=== PATIENT | female | born 1980 | race Caucasian/White ===

== ENCOUNTER 2016-10-11 20:01 | Emergency (ER) | payer OTHER ==
[2016-10-11 20:27] VITALS: BP 117/74
--- NOTE | 2016-10-11 21:06 | UC ---
Respiratory Complaint HPI - HPI Summary HPI Summary: 1 WEEK OF COUGH, CONGESTION AND CHEST TIGHTNESS. CAN NOT BREATHE THROUGH HER NOSE AT NIGHT. NO FEVER, ST OR EAR PAIN. 25 WEEKS . FOLLOWS WITH MIDWIVES AT [employer] [facility]. NO BLEEDING OR LOSS OF FLUID. BABY MOVING WELL. - History of Current Complaint Chief Complaint: UCRespiratory Stated Complaint: COUGH,TIGHT CHEST,PREG Time Seen by Provider: 10/11/16 20:36 Hx Obtained From: Patient Hx Last Menstrual Period: 1.5 WEEKS AGO Onset/Duration: Gradual Onset, Lasting Days, Still Present Timing: Constant Severity Initially: Moderate Severity Currently: Moderate Pain Intensity: 5 Pain Scale Used: 0-10 Numeric Character: Cough: Nonproductive Aggravating Factors: Nothing Alleviating Factors: Nothing Associated Signs And Symptoms: Positive: URI, Nasal Congestion. Negative: Fever , Chills, Pleuritic Chest Pain, Wheezing, Hemoptysis, Dizziness, Calf Pain, Calf Swelling, Edema, Hoarseness, Sinus Discomfort - Allergies/Home Medications Allergies/Adverse Reactions: Allergies Allergy/AdvReac Type Severity Reaction Status Date / Time No Known Allergies Allergy Verified 10/11/16 20:12 Home Medications: Home Medications Vitamin TAB* 1 tab QPM 10/11/16 [History Confirmed 10/11/16] PMH/Surg Hx/FS Hx/Imm Hx Endocrine History Of: Denies: Diabetes, Thyroid Disease, Hyperthyroidism, Hypothyroidism, Dyslipidemia Cardiovascular History Of: Denies: Cardiac Disorders, Hypertension, Pacemaker/ICD, Myocardial Infarction , Congestive Heart Failure, Atrial Fibrillation, Deep Vein Thrombosis, Bleeding Disorders Respiratory History Of: Reports: Asthma Denies: COPD GI/ History Of: Reports: Gastroesophageal Reflux - She takes Nexium every day. Denies: Ulcer, Gastrointestinal Bleed, Gall Bladder Disease, Kidney Stones, Diverticulitis, Renal Disease, Urosepsis Neurological History Of: Denies: TIA, CVA, Dementia, Seizures, Migraine Psychological History Of: Denies: Anxiety, Depression, Bipolar Disorder, Schizophrenia, Post Traumatic Stress Disorder Cancer History Of: Denies: Lung Cancer, Colorectal Cancer, Breast Cancer, Prostate Cancer, Cervical Cancer Other History Of: Negative For: HIV, Hepatitis B, Hepatitis C - Surgical History Surgical History: Yes Surgery Procedure, Year, and Place: Left foot surgery; - Family History Known Family History: Positive: Seizure Disorder - Brother had seizure as a child--but none since. Negative: Hypertension, Blood Disorder - Social History Alcohol Use: None Substance Use Type: None Smoking Status (MU): Never Smoked Tobacco - Immunization History Most Recent Influenza Vaccination: 2016 Most Recent Tetanus Shot: UTD Most Recent Pneumonia Vaccination: none Review of Systems Constitutional: Fatigue ENT: Nasal Discharge Respiratory: Cough Cardiovascular: Negative Gastrointestinal: Negative All Other Systems Reviewed And Are Negative: Yes Physical Exam Triage Information Reviewed: Yes Appearance: Well-Appearing, No Pain Distress, Well-Nourished Vital Signs: Initial Vital Signs Temp 97.4 F 10/11/16 20:14 Pulse 100 10/11/16 20:14 Resp 18 10/11/16 20:14 BP 117/74 10/11/16 20:14 Pulse Ox 99 10/11/16 20:14 Vital Signs Reviewed: Yes Eyes: Positive: Conjunctiva Clear ENT: Positive: Hearing grossly normal, Pharynx normal, TMs normal, Other: - FLUID BEHIND RIGHT TM Neck: Positive: Supple, Nontender, No Lymphadenopathy Respiratory Exam: Normal Cardiovascular Exam: Normal Abdomen Description: Positive: Soft, Other: - GRAVID. HEART TONES 140S Musculoskeletal: Positive: No Edema Neurological: Positive: Alert Psychological: Positive: Normal Response To Family, Age Appropriate Behavior Skin: Negative: rashes UC Diagnostic Evaluation - Laboratory O2 Sat by Pulse Oximetry: 99 Respiratory Course/Dx - Differential Dx/Diagnosis Provider Diagnoses: ACUTE BRONCHITIS/URI Discharge - Discharge Plan Condition: Stable Disposition: HOME Patient Education Materials: Upper Respiratory Infection (ED), Acute Bronchitis (ED) Referrals: Carmel Diamond MD [Primary Care Provider] - If Needed Additional Instructions: THERE IS NO SIGN OF BACTERIAL INFECTION ON EXAM TODAY. NO INDICATION FOR ABX. OKAY TO USE TYLENOL IF NEEDED FOR DISCOMFORT. NO IBUPROFEN OR NAPROXEN (NOT SAFE IN ). YOUR SYMPTOMS SHOULD RESOLVE ON THEIR OWN WITH TIME BUT IT WILL TAKE LONGER THAN USUAL DUE TO . CAN ALSO CAUSE CONGESTION AND FEELINGS OF SHORTNESS OF BREATH DUE TO HORMONAL CHANGES AND PHYSICAL PRESSURE ON LUNGS FROM GROWING BELLY. TRY OTC AFRIN FOR NASAL CONGESTION. OKAY TO USE 2 SPRAYS IN EACH NOSTRIL AT NIGHT BEFORE BED. DO NOT USE FOR MORE THAN 3-4 CONSECUTIVE DAYS TO PREVENT DEVELOPING REBOUND CONGESTION. SEEK FOLLOW-UP IF YOU DEVELOP FEVER OR YOUR SYMPTOMS DO NOT IMPROVE EXPECTED.
== END 2016-10-11 21:25 | disposition home or self-care (01) ==
LOC: UCEAST 20:01
DX: O26.892 Other specified pregnancy related conditions, second trimester (principal); Z3A.25 25 weeks gestation of pregnancy; J20.9 Acute bronchitis, unspecified; J06.9 Acute upper respiratory infection, unspecified; R07.89 Other chest pain
CPT/HCPCS: 93005; 99211; G0463

== ENCOUNTER 2016-10-29 12:04 | Emergency (ER) | payer OTHER ==
[2016-10-29] MEDS ORDERED: NS 0.9% 1000 ML* 1,000 ML IV ONE (13:39)
[2016-10-29 14:17] LABS: Hematocrit 33 % (35-47); Hemoglobin 10.6 g/dl (12.0-16.0); Mean Corpuscular HGB Conc 32 g/dl (31-36); Mean Corpuscular Hemoglobin 26 pg (27-31); Mean Corpuscular Volume 80 fL (80-97); Mean Platelet Volume 8 um3 (7.4-10.4); Red Blood Count 4.09 10^6/ul (4.0-5.4); Red Cell Distribution Width 15 % (10.5-15); White Blood Count 15.8 10^3/ul (3.5-10.8)
[2016-10-29 14:32] LABS: Albumin 3.3 g/dL (3.2-5.2); BUN/Creatinine Ratio 16.3 (8-20); Calcium 8.6 mg/dL (8.6-10.3); EGFR African American 183.8 (>60); EGFR Non-African American 142.9 (>60); Globulin 3.2 g/dL (2-4); Potassium 3.7 mmol/L (3.5-5.0); Total Bilirubin 0.2 mg/dL (0.2-1.0); Total Protein 6.5 g/dL (6.4-8.9)
[2016-10-29 14:38] LABS: Urine Bacteria Absent (Absent); Urine Bilirubin Negative (Negative); Urine Glucose 1+(50 mg/dL) (Negative); Urine Nitrite Negative (Negative)
--- NOTE | 2016-10-29 16:03 | RAD ---
INDICATION: Pain and swelling. COMPARISON: None TECHNIQUE: Duplex interrogation of the upperextremity was performed. FINDINGS: Deep veins: The visualized internal jugular, visualized subclavian, axillary, brachial, radial, and ulnar veins are patent. There is normal compressibility, augmentation, and phasic flow. Superficial veins: The cephalic and basilic veins are patent. There are no findings of superficial thrombophlebitis. Soft tissues:There are no soft tissue abnormalities. IMPRESSION: Normal examination. No evidence of deep venous thrombosis
--- NOTE | 2016-10-29 16:37 | ED ---
Merle Werner Erika, scribed for Lynnette Blue MD on 10/29/16 at 1412 . Complex/Multi-Sys Presentation - HPI Summary HPI Summary: Patient is a 36-year-old female presenting to the ED with a CC of paresthesia in the bilateral hands. Patient is currently 7.5 months . Patient reports that she has noticed the constant paresthesia, described as "pins and needles," for the past 3 weeks, and that it has been gradually worsening. The sensation is present on the whole left hand, and the palmar surface of the right hand. The hands are sometimes pruritic, and the left hand intermittently becomes numb. She also notes a shooting pain from her left elbow to left hand. She reports that last night, she woke up due to pain in the left hand, and states it was purple and swollen. She denies lower extremity pain, and denies Hx DVT or PE. Patient also states that she has been waking up during the night feeling SOB and "gasping for air." She notes SOB is sometimes present while she is sitting up. She denies any chest pressure, pain with deep breathing, or wheezing during the day. She does report hot flashes during the day, which make her anxious. Symptoms are not improved by her inhaler, which is effective when she has asthma attacks. Patient states that last week, she had a sharp pain in her lower back, which has resolved. For the past 3 days, she has had intermittent headaches. Yesterday, patient had a fever. Patient also notes she has been nauseated recently. Patient denies similar symptoms with prior pregnancies. . Patient reports Hx placental abruption in her last . Patient notes she has felt the baby move less than normal today. Hx asthma. Denies Hx DM. FHx asthma and DM. Patient is followed by Dr. Diamond. Pt works at a Day[employer] and lives with her family. She denies smoking, drinking, or illicit drug use. - History Of Current Complaint Chief Complaint: EDGeneral Time Seen by Provider: 10/29/16 13:17 Hx Obtained From: Family/Sales Compensation Analyst Onset/Duration: Gradual Onset, Lasting Weeks - 3 weeks, Still Present Timing: Constant Severity Currently: Moderate Severity Initially: Mild Associated Signs And Symptoms: Positive: Headache, SOB, Edema - L hand, Nausea, Fever, Other - Paresthesias, numbness. Negative: Wheezing, Chest Pain, Abdominal Pain - Allergies/Home Medications Allergies/Adverse Reactions: Allergies Allergy/AdvReac Type Severity Reaction Status Date / Time No Known Allergies Allergy Verified 10/11/16 20:12 PMH/Surg Hx/FS Hx/Imm Hx Endocrine/Hematology History: Denies: Hx Diabetes, Hx Thyroid Disease Cardiovascular History: Denies: Hx Congestive Heart Failure, Hx Deep Vein Thrombosis, Hx Hypertension , Hx Myocardial Infarction, Hx Pacemaker/ICD Respiratory History: Reports: Hx Asthma Denies: Hx Chronic Obstructive Pulmonary Disease (COPD), Hx Lung Cancer GI History: Reports: Hx Gastroesophageal Reflux Disease Denies: Hx Gall Bladder Disease, Hx Gastrointestinal Bleed, Hx Ulcer, Hx Urosepsis History: Denies: Hx Kidney Stones, Hx Renal Disease Neurological History: Denies: Hx Dementia, Hx Migraine, Hx Seizures, Hx Transient Ischemic Attacks (TIA) Psychiatric History: Denies: Hx Anxiety, Hx Depression, Hx Schizophrenia, Hx Bipolar Disorder - Surgical History Surgery Procedure, Year, and Place: Left foot surgery; - Immunization History Date of Tetanus Vaccine: unk Date of Influenza Vaccine: unk Infectious Disease History: No Infectious Disease History: Denies: Hx Clostridium Difficile, Hx Hepatitis, Hx Human Immunodeficiency Virus (HIV), Hx of Known/Suspected MRSA, Hx Shingles, Hx Tuberculosis, Hx Known/ Suspected VRE, Hx Known/Suspected VRSA, History Other Infectious Disease, Traveled Outside the [place] in Last 30 Days - Family History Known Family History: Positive: Diabetes, Respiratory Disease - Asthma Negative: Hypertension, Blood Disorder - Social History Occupation: Employed Full-time Lives: With Family Alcohol Use: None Hx Substance Use: No Substance Use Type: Reports: None Hx Tobacco Use: No Smoking Status (MU): Never Smoked Tobacco Review of Systems Positive: Fever, Other - hot flashes Negative: Chest Pain Positive: Shortness Of Breath Positive: Nausea Musculoskeletal: Other - Pain in L arm Skin: Other - hands somewhat pruritic, L hand purple and swollen Positive: Headache, Paresthesia - bilat hands, Numbness - L hand Positive: Anxious All Other Systems Reviewed And Are Negative: Yes Physical Exam Triage Information Reviewed: Yes Vital Signs On Initial Exam: Initial Vitals Temp Pulse Resp BP Pulse Ox 97.9 F 107 16 128/80 100 10/29/16 12:05 10/29/16 12:10/29/16 12:05 10/29/16 12:05 10/29/16 12:05 Vital Signs Reviewed: Yes Appearance: Positive: Well-Appearing, Well-Nourished, Pain Distress - Mildly uncomfortable appearing Skin: Positive: Warm, Skin Color Reflects Adequate Perfusion, Dry Eyes: Positive: EOMI, ZAYNAB ENT: Positive: Pharynx normal, TMs normal Neck: Positive: Supple, Nontender, Other: - No meningeal signs Respiratory/Lung Sounds: Positive: Clear to Auscultation, Breath Sounds Present. Negative: Rales, Rhonchi, Wheezes Cardiovascular: Positive: Tachycardia - at 107 bpm, Other - No gallops. Negative: Murmur, Rub Abdomen Description: Positive: Nontender, Soft, Other: - . No rebound. Negative: Guarding Bowel Sounds: Positive: Present Musculoskeletal: Positive: Strength/ROM Intact, Other - Slight swelling to the bilateral hands, left greater than right Neurological: Positive: Sensory/Motor Intact, Alert, Oriented to Person Place, Time, Other - CN II-XII intact. Normal DTRs Psychiatric: Positive: Affect/Mood Appropriate Procedures - Procedure Summary Procedure Summary: Splints applied. Diagnostics - Vital Signs Vital Signs Temp Pulse Resp BP Pulse Ox 10/29/16 12:12 97.8 F 105 20 131/82 99 10/29/16 12:05 97.9 F 107 16 128/80 100 - Laboratory Lab Results: Lab Results 10/29/16 10/29/16 10/29/16 Range/Units 13:59 13:59 13:59 WBC 15.8 H (3.5-10.8) 10^3/ul RBC 4.09 (4.0-5.4) 10^6/ul Hgb 10.6 L (12.0-16.0) g/dl Hct 33 L (35-47) % MCV 80 (80-97) fL MCH 26 L (27-31) pg MCHC 32 (31-36) g/dl RDW 15 (10.5-15) % Plt Count 253 (150-450) 10^3/ul MPV 8 (7.4-10.4) um3 Neut % (Auto) 78.2 (38-83) % Lymph % (Auto) 11.5 L (25-47) % [place] % (Auto) 7.9 (1-9) % Eos % (Auto) 2.1 (0-6) % Baso % (Auto) 0.3 (0-2) % Absolute Neuts (auto) 12.4 H (1.5-7.7) 10^3/ul Absolute Lymphs (auto) 1.8 (1.0-4.8) 10^3/ul Absolute Monos (auto) 1.2 H (0-0.8) 10^3/ul Absolute Eos (auto) 0.3 (0-0.6) 10^3/ul Absolute Basos (auto) 0 (0-0.2) 10^3/ul Absolute Nucleated RBC 0.01 10^3/ul Nucleated RBC % 0.1 Sodium 135 (133-145) mmol/L Potassium 3.7 (3.5-5.0) mmol/L Chloride 105 (101-111) mmol/L Carbon Dioxide 23 (22-32) mmol/L Anion Gap 7 (2-11) mmol/L BUN 8 (6-24) mg/dL Creatinine 0.49 L (0.51-0.95) mg/dL Est GFR ( Amer) 183.8 (>60) Est GFR (Non-Af Amer) 142.9 (>60) BUN/Creatinine Ratio 16.3 (8-20) Glucose 116 H (70-100) mg/dL Lactic Acid (0.5-2.0) mmol/L Calcium 8.6 (8.6-10.3) mg/dL Total Bilirubin 0.20 (0.2-1.0) mg/dL AST 14 (13-39) U/L ALT 8 (7-52) U/L Alkaline Phosphatase 73 (34-104) U/L Total Protein 6.5 (6.4-8.9) g/dL Albumin 3.3 (3.2-5.2) g/dL Globulin 3.2 (2-4) g/dL Albumin/Globulin Ratio 1.0 (1-3) Urine Color Yellow Urine Appearance Cloudy Urine pH 5.0 (5-9) Ur Specific [place] 1.019 (1.010-1.030) Urine Protein Negative (Negative) Urine Ketones Negative (Negative) Urine Blood Negative (Negative) Urine Nitrate Negative (Negative) Urine Bilirubin Negative (Negative) Urine Urobilinogen Negative (Negative) Ur Leukocyte Esterase 3+ H (Negative) Urine WBC (Auto) Trace(0-5/hpf) (Absent) Urine RBC (Auto) Absent (Absent) Ur Squamous Epith Cells Present H (Absent) Urine Bacteria Absent (Absent) Urine Glucose 1+(50 mg/dl) H (Negative) Urine Ascorbic Acid * H (Negative) 10/29/16 Range/Units 13:59 WBC (3.5-10.8) 10^3/ul RBC (4.0-5.4) 10^6/ul Hgb (12.0-16.0) g/dl Hct (35-47) % MCV (80-97) fL MCH (27-31) pg MCHC (31-36) g/dl RDW (10.5-15) % Plt Count (150-450) 10^3/ul MPV (7.4-10.4) um3 Neut % (Auto) (38-83) % Lymph % (Auto) (25-47) % [place] % (Auto) (1-9) % Eos % (Auto) (0-6) % Baso % (Auto) (0-2) % Absolute Neuts (auto) (1.5-7.7) 10^3/ul Absolute Lymphs (auto) (1.0-4.8) 10^3/ul Absolute Monos (auto) (0-0.8) 10^3/ul Absolute Eos (auto) (0-0.6) 10^3/ul Absolute Basos (auto) (0-0.2) 10^3/ul Absolute Nucleated RBC 10^3/ul Nucleated RBC % Sodium (133-145) mmol/L Potassium (3.5-5.0) mmol/L Chloride (101-111) mmol/L Carbon Dioxide (22-32) mmol/L Anion Gap (2-11) mmol/L BUN (6-24) mg/dL Creatinine (0.51-0.95) mg/dL Est GFR ( Amer) (>60) Est GFR (Non-Af Amer) (>60) BUN/Creatinine Ratio (8-20) Glucose (70-100) mg/dL Lactic Acid 0.9 (0.5-2.0) mmol/L Calcium (8.6-10.3) mg/dL Total Bilirubin (0.2-1.0) mg/dL AST (13-39) U/L ALT (7-52) U/L Alkaline Phosphatase (34-104) U/L Total Protein (6.4-8.9) g/dL Albumin (3.2-5.2) g/dL Globulin (2-4) g/dL Albumin/Globulin Ratio (1-3) Urine Color Urine Appearance Urine pH (5-9) Ur Specific [place] (1.010-1.030) Urine Protein (Negative) Urine Ketones (Negative) Urine Blood (Negative) Urine Nitrate (Negative) Urine Bilirubin (Negative) Urine Urobilinogen (Negative) Ur Leukocyte Esterase (Negative) Urine WBC (Auto) (Absent) Urine RBC (Auto) (Absent) Ur Squamous Epith Cells (Absent) Urine Bacteria (Absent) Urine Glucose (Negative) Urine Ascorbic Acid (Negative) Result Diagrams: 10/29/16 13:59 10/29/16 13:59 Lab Statement: Any lab studies that have been ordered have been reviewed, and results considered in the medical decision making process. - Ultrasound No standard instances Ultrasound Interpretation Completed By: Radiologist - Venous doppler LUE - IMPRESSION: Normal examination. No evidence of deep venous thrombosis Re-Evaluation - Re-Evaluation First Eval Re-Evaluation Time: 16:16 Comment: Discussed lab and imaging results with patient Complex Multi-Symp Course/Dx Course Of Treatment: case discussed with Dr. Hsu, her labs and vital signs are appropriate for her stage of . She mentions waking up occasionally being short of breath but that this is short lasting until she notices that are hands are really hurting and then she can't go back to sleep. She does not have hellp syndrome by labs, her doppler of her left arm is negative. I doubt PE and her headaches are mild. This seems to be median nerve compression of , I gave her the correct splints here and urged her to be adherant to using them at night and all day for now taking the hands out to do range of motion exercises. Dr. Hsu suggested PT with Dr. Antunez/ heart tones will be done before she leaves - Diagnoses Provider Diagnoses: Median nerve compression - Physician Notifications Discussed Care Of Patient With: Dr. Hsu (OB-Sour Bleaching Pleater) at 15:16 - discussed results and plan of care. Discharge - Discharge Plan Condition: Stable Disposition: HOME Patient Education Materials: Carpal Tunnel Syndrome (ED) Referrals: Carmel Diamond MD [Primary Care Provider] - June Hsu MD [Medical Doctor] - (Please follow up with OB.) Additional Instructions: Please follow up with Jw Frazier [facility] - . Take Tylenol as needed for the pain. Use the splint every night and, for the first week, during the day until pain is better. The documentation as recorded by the Merle galdamez Erika accurately reflects the service I personally performed and the decisions made by me, Lynnette Blue MD.
[2016-10-29 17:03] VITALS: BP 128/86
== END 2016-10-29 16:59 | disposition home or self-care (01) ==
LOC: ED 12:04
DX: G56.02 Carpal tunnel syndrome, left upper limb (principal); R06.02 Shortness of breath; R20.8 Other disturbances of skin sensation; R51 Headache; R60.0 Localized edema; R11.0 Nausea; R50.9 Fever, unspecified
CPT/HCPCS: 36415; 80053; 81003; 81015; 83605; 85025; 87086; 99283

== ENCOUNTER 2017-01-06 12:25 | Inpatient (IN) | payer OTHER ==
[2017-01-06] MEDS ORDERED: Lidocaine 1% MPF* 2 ML VIAL ONE (13:17)
[2017-01-06 13:54] LABS: Hematocrit 33 % (35-47); Hemoglobin 10.5 g/dl (12.0-16.0); Mean Corpuscular HGB Conc 32 g/dl (31-36); Mean Corpuscular Hemoglobin 24 pg (27-31); Mean Platelet Volume 8 um3 (7.4-10.4); Red Blood Count 4.44 10^6/ul (4.0-5.4); Red Cell Distribution Width 17 % (10.5-15)
[2017-01-06 14:10] LABS: Comments Flag Yes; Mean Corpuscular Volume 73 fL (80-97)
[2017-01-06] MEDS ORDERED: ceFOXitin 2 GM IVPREMIX* 2 GM/50 ML BAG IVPB ONE (17:59)
[2017-01-06] MEDS ORDERED: Sodium Citrate/Citric Acid* 15 ML UDC ONE (18:01)
[2017-01-06] MEDS ORDERED: ceFOXitin 2 GM IVPREMIX* 2 GM/50 ML BAG ONE (18:01)
[2017-01-06] MEDS ORDERED: Albuterol HFA INHALER* 8 gm MDI INH PRN (18:02)
[2017-01-06] MEDS ORDERED: Morphine PF AMP (0.5MG/ML)* 5 MG/10 ML AMP ONE (18:38)
[2017-01-06] MEDS ORDERED: Phenylephrine IV* 40 MCG/ML 10 ML SYRINGE ONE (18:59)
[2017-01-06] MEDS ORDERED: OXYTOCIN* 10 UNITS/ML 1 ML VIAL ONE (19:10)
[2017-01-06] MEDS ORDERED: Ondansetron INJ* 2 MG/ML VIAL IV PRN (19:17)
[2017-01-06] MEDS ORDERED: oxyCODONE/Acetamin 5/325 MG* TAB PO PRN (19:17)
[2017-01-06] MEDS ORDERED: DiMENhydriNATE IV* 50 MG/ML VIAL IV PUSH PRN (19:17)
[2017-01-06] MEDS ORDERED: Naloxone* 0.4 MG/ML 1 ML VIAL IV PRN (19:17)
[2017-01-06] MEDS ORDERED: fentaNYL* 50 MCG/ML 2 ML VIAL (100 MCG VIAL) IV PRN (19:19)
[2017-01-06] MEDS ORDERED: Witch Hazel PAD* JAR TOPICAL PRN (20:10)
[2017-01-06] MEDS ORDERED: Nalbuphine* 20 MG/ML 1 ML VIAL ONE (20:22)
[2017-01-06] MEDS ORDERED: Nalbuphine* 20 MG/ML 1 ML VIAL IV PRN (20:29)
[2017-01-06] MEDS: Docusate CAP* 100 MG PO SCH (21:30)
[2017-01-06] MEDS: Simethicone CHEW TAB* 80 MG PO SCH (21:30)
[2017-01-06] MEDS: Ibuprofen TAB* 600 MG PO SCH (21:35)
--- NOTE | 2017-01-07 02:59 | OP ---
DATE OF OPERATION: 01/06/17 - ROOM #MCHOB-116 DATE OF : 80 SURGEON: Deepa Faustin MD SR VICE PRESIDENT: Jorge Jack CNM ANESTHESIOLOGIST: Enrique Landon MD ANESTHESIA: Spinal. PRE-OP DIAGNOSIS: A 37 weeks' gestation in labor with history of previous C- section and satisfied parity. POST-OP DIAGNOSIS: A 37 weeks' gestation in labor with history of previous C- section and satisfied parity. OPERATIVE PROCEDURE: Repeat low-transverse section and bilateral tubal ligation. ESTIMATED BLOOD LOSS: 700 cc. URINE OUTPUT: 100 cc. IV FLUIDS: 1300 cc lactated Ringers. MATERIALS TO LAB: Cord blood. INDICATIONS: This patient was a 37-year-old 5, para 3 at 37 weeks' gestation who presented several times throughout the with contractions and discomfort. Today, the patient was sent from the office again with return of contractions and cervix was 2 cm dilated. The patient was observed for at least 4 hours on labor and delivery at which point, her contractions appeared to be continuing about every 2 to 3 minutes and her cervix was now 3 cm dilated. heart tracing was category I. Considering the patient was having cervical change at term and with a previous , a decision was made to proceed with delivery. The patient declined a trial of labor and desired to proceed with a C- section. She had also previously signed paperwork for permanent sterilization with tubal ligation. She was counseled again today and she still firmly desired to have tubal ligation for permanent sterilization. Consent was signed. FINDINGS: Normal-appearing uterus, fallopian tubes, and ovaries. Delivery is productive of a female infant weighing 8 pounds 5 ounces with Apgars of 9 and 9. Time of delivery was 1913 hours. Tubal ligation was performed using fimbriectomy. COMPLICATIONS: None. DESCRIPTION OF PROCEDURE: The risks, benefits, and alternatives were described to the patient, and informed consent was obtained. The patient was taken to the operating room with IV running, where spinal anesthesia was induced and found to be adequate. The patient was prepped and draped in normal sterile fashion in the dorsal supine position with a leftward tilt. A Pfannenstiel skin incision was made with a scalpel through the patient's previous incision. This was carried down to the underlying fascia using the scalpel. The fascia was scored in the midline, and the incision was extended using Kellogg scissors. The fascia was dissected off the underlying rectus muscles using blunt and sharp dissection. The rectus muscles were in the midline using dissection with a Snehal clamp. The peritoneum was then entered bluntly. A bladder blade was placed. A bladder flap was created sharply using Metzenbaum scissors. A low transverse uterine incision was then made with the scalpel. This was carried down to the amniotic membranes. The membranes were then ruptured, productive of clear fluid. The uterine incision was extended using blunt traction. The head was elevated to the level of the incision, and, with fundal pressure, the head delivered without difficulty. The shoulders then were also both delivered and the body followed. The had excellent tone and cried immediately on delivery. The cord was doubly clamped and cut. The was then handed to the awaiting director of valuation. Cord blood was collected. The placenta was delivered with manual extraction. The uterus was then exteriorized and cleared of all clots and debris. The uterine incision was then reapproximated using 0 Polysorb in a running-locked fashion. A second layer of imbricating 0 Polysorb [id number] stitches was then also placed with good hemostasis. The posterior cul-de-sac was irrigated with saline. The right fallopian tube was then clamped with a Snehal clamp, incorporating the distal 1/3 of the tube and the fibriated end. A 3-0 Polysorb tied was placed, and then a 3-0 Polysorb stitch was placed above it. The tube segment was then excised with Metzenbaum scissors. The same was performed on the left, and both had excellent hemostasis. The uterus was then returned to the abdomen. The incision and tubal ligation sites were reinspected and still noted to be hemostatic. The peritoneum was closed with 3-0 Polysorb in a running fashion. The fascia was closed with 0 Polysorb in a running fashion. The subcutaneous tissues were copiously irrigated and made hemostatic using the Bovie. The skin was then closed with 4-0 Monocryl in a subcuticular stitch. Mastisol and steri-strips were then applied. A sterile bandage was then placed over the incision. The patient tolerated the procedure well. Sponge, lap, and needle counts were correct x2. [id number]/[facility] #: [id number] [facility]
[2017-01-07] MEDS: Ibuprofen TAB* 600 MG PO SCH ×4 (05:00→20:09)
[2017-01-07] MEDS: Docusate CAP* 100 MG PO SCH ×3 (08:20→20:10)
[2017-01-07] MEDS: Simethicone CHEW TAB* 80 MG PO SCH ×4 (08:20→20:09)
[2017-01-07] MEDS: Omeprazole CAP* 20 MG PO SCH (08:20)
[2017-01-07 08:39] LABS: Comments Flag Yes; Hematocrit 30 % (35-47); Hemoglobin 9.2 g/dl (12.0-16.0); Mean Corpuscular HGB Conc 31 g/dl (31-36); Mean Corpuscular Hemoglobin 23 pg (27-31); Mean Corpuscular Volume 74 fL (80-97); Mean Platelet Volume 8 um3 (7.4-10.4); Red Blood Count 4.03 10^6/ul (4.0-5.4); Red Cell Distribution Width 17 % (10.5-15); White Blood Count 13.7 10^3/ul (3.5-10.8)
[2017-01-07] MEDS ORDERED: diPHENhydraMINE PO* 25 MG ONE (17:22)
[2017-01-07] MEDS: oxyCODONE/Acetamin 5/325 MG* TAB PO PRN (21:10)
[2017-01-08] MEDS: Ibuprofen TAB* 600 MG PO SCH ×4 (02:29→20:06)
[2017-01-08] MEDS ORDERED: diPHENhydraMINE PO* 25 MG PO PRN (06:23)
[2017-01-08] MEDS: Simethicone CHEW TAB* 80 MG PO SCH ×4 (07:19→20:06)
[2017-01-08] MEDS: oxyCODONE/Acetamin 5/325 MG* TAB PO PRN ×3 (07:19→20:06)
[2017-01-08] MEDS: Docusate CAP* 100 MG PO SCH ×3 (08:14→20:06)
[2017-01-08] MEDS: Omeprazole CAP* 20 MG PO SCH (08:15)
[2017-01-09] MEDS: oxyCODONE/Acetamin 5/325 MG* TAB PO PRN ×2 (02:22→06:50)
[2017-01-09] MEDS: Ibuprofen TAB* 600 MG PO SCH ×2 (02:22→07:49)
[2017-01-09] MEDS: Omeprazole CAP* 20 MG PO SCH (07:48)
[2017-01-09] MEDS: Docusate CAP* 100 MG PO SCH (07:49)
[2017-01-09] MEDS: Simethicone CHEW TAB* 80 MG PO SCH (07:49)
[2017-01-09 07:59] VITALS: BP 120/76
== END 2017-01-09 11:44 | disposition home or self-care (01) | DRG 540 ==
LOC: MCHOBOUT 12:25 → MCHOB 17:56
PROVIDERS: ADMIT Obstetrics & Gynecology; ATTEND Obstetrics & Gynecology
PROC: 0UB70ZZ Excision of Bilateral Fallopian Tubes, Open Approach (ICD-10-PCS; 2017-01-06)
PROC: 10D00Z1 Extraction of Products of Conception, Low, Open Approach (ICD-10-PCS; principal; 2017-01-06 18:39)
DX: O60.23X0 Term delivery with preterm labor, third trimester, not applicable or unspecified (principal); O09.523 Supervision of elderly multigravida, third trimester; O34.211 Maternal care for low transverse scar from previous cesarean delivery; Z3A.37 37 weeks gestation of pregnancy; Z37.0 Single live birth
CPT/HCPCS: 36415; 85025; 86850; 86900; 86901; 88302; A9270-GY; J0694; J1240; J2300; J2405; J2590

== ENCOUNTER 2017-10-11 08:42 | Emergency (ER) | payer OTHER ==
[2017-10-11 08:54] VITALS: BP 108/74
--- NOTE | 2017-10-11 14:40 | UC ---
Eleuterio Werner Jennifer, scribed for [facility] MD on 10/11/17 at 0959 . Abdominal Pain Female HPI - HPI Summary HPI Summary: In Room:The patient is a 37 year old female who complains of sore throat and RUQ abdominal pain that began last night. The patient explains that the sore throat began first a couple days ago. She began to cough and her sinuses started hurting yesterday. The patient reports her stomach felt tight up until yesterday, which she tried to treat with her inhaler. Then, the patient reports she suddenly felt nauseous last night and woke up at 02:00 this morning with extreme sharp pain on her right side and tightness across the top of her abdomen. This pain lasted for about three hours in the night and is slightly better in [facility] but is still rated a 5/10. She reports that movement and walking aggravate the pain. The patient reports she has never had this pain before and has never had issues with her gallbladder. The patient denies fever, swelling of the neck, chest pain, constipation, diarrhea, and problems with urination. MD Note: Vital signs stable, afebrile, pulse ox 100. 6/10 abdominal discomfort. Hx of asthma, GERD, placental abruption, and . Pt is on Albuterol and Nexium. Nurse Note: sore throat and ruq abd pain which started last pm - History of Current Complaint Chief Complaint: UCAbdominalPain Stated Complaint: SIDE PAIN Hx Obtained From: Patient Hx Last Menstrual Period: 09/12/17 Onset/Duration: Sudden Onset, Lasting Hours - about 7 hours, Still Present Timing: Constant Severity Initially: Moderate Severity Currently: Moderate Pain Intensity: 6 Pain Scale Used: 0-10 Numeric Location: Diffuse - Tight across top of stomach, Discrete At: RUQ Radiates: No Radiates to: Flank - Right Character: Sharp, Other - Tightness Aggravating Factor(s): Movement, Other: - Walking Alleviating Factor(s): Nothing Allergies/Adverse Reactions: Allergies Allergy/AdvReac Type Severity Reaction Status Date / Time No Known Allergies Allergy Verified 10/11/17 12:11 PMH/Surg Hx/FS Hx/Imm Hx Previously Healthy: No - NEG: Kidney stones Respiratory History: Asthma GI/ History: Gastroesophageal Reflux Other History Of: Negative For: HIV, Hepatitis B, Hepatitis C - Surgical History Surgical History: Yes Surgery Procedure, Year, and Place: Left foot surgery; - Family History Known Family History: Positive: Diabetes, Respiratory Disease - Asthma, Seizure Disorder - Brother had seizure as a child--but none since., Other - [place] - sister Negative: Hypertension, Blood Disorder - Social History Occupation: Employed Full-time - Owns daycare Alcohol Use: None Substance Use Type: None Smoking Status (MU): Never Smoked Tobacco - Immunization History Most Recent Influenza Vaccination: 2016 Most Recent Tetanus Shot: UTD Most Recent Pneumonia Vaccination: none Review of Systems Constitutional: Negative - Fever ENT: Sore Throat, Sinus Pain/Tenderness Respiratory: Cough Cardiovascular: Negative - Chest pain Gastrointestinal: Abdominal Pain, Nausea Genitourinary: Negative - Constipation, diarrhea, problems with urination Musculoskeletal: Negative - Neck swelling All Other Systems Reviewed And Are Negative: Yes Physical Exam - Summary Physical Exam Summary: Appearance: The patient is well-appearing, is in no pain distress, and is well- nourished. THE PATIENT CAN AMBULATE AND JUMP WITHOUT ABDOMINAL PAIN. Eyes: Conjunctiva are clear. ENT: The hearing is grossly normal, and the TMs are normal. THROAT EXAM SHOWS MILD ERYTHEMA, OTHERWISE NORMAL. There is no muffled or hoarse voice. Neck: The neck is supple and there is no lymphadenopathy. Respiratory: The chest is nontender. The lungs are clear, there are normal breath sounds, and there is no respiratory distress. Cardiovascular: Heart is regular rate and rhythm. There is no murmur. Abdomen: The abdomen is soft. MODERATE PAIN WITH PALPATION TO RUQ, 3 HOURS OF INTENSE RUQ PAIN. NO POINT TENDERNESS ON RLQ. NO CVA TENDERNESS. NEGATIVE ABDOMINAL EXAM, NEGATIVE PERITONEAL SIGNS. There is no organomegaly. Bowel sounds: present Musculoskeletal: MILD RIGHT THORACIC LUMBAR DISCOMFORT, WORSE WITH MOVEMENT. Strength is intact. The patient moves all extremities. Neurological: The patient is alert. Psychological: The patient displays age appropriate behavior Skin: Negative for rashes. Triage Information Reviewed: Yes Vital Signs: Initial Vital Signs Temp 97.7 F 10/11/17 08:51 Pulse 81 10/11/17 08:51 Resp 17 10/11/17 08:51 BP 108/74 10/11/17 08:51 Pulse Ox 100 10/11/17 08:51 Vital Signs Reviewed: Yes Abd Pain Female Course/Dx - Course Course Of Treatment: 37 year old female, good historian, with intense RUQ pain for 3 hours overnight. UA is negative for , infection, or blood. Doubt kidney stone. Continued pain in CCC. Rapid strep, negative. No hx of constipation. Possible biliary colic or cholecystitis. Pt will follow up in the emergency department. Medications have been included in the original chart and reviewed. - Differential Dx/Diagnosis Provider Diagnoses: Abdominal pain, RUQ: unclear etiology Discharge - Sign-Out/Discharge Documenting (check all that apply): Discharge - Discharge Plan Condition: Stable Disposition: [facility] OF CARE FAC Patient Education Materials: Acute Abdominal Pain (ED) Referrals: Carmel Diamond MD [Primary Care Provider] - Additional Instructions: PLEASE SEEK CARE AT THE EMERGENCY DEPARTMENT for further evaluation, and treatment as needed. Your abdominal pain is continuing and it's not clear exactly what's causing it. Your urine is normal and your strep test was negative. - Billing Disposition and Condition Condition: STABLE Disposition: EMTALA The documentation as recorded by the Eleuterio [email or web address] Jennifer accurately reflects the service I personally performed and the decisions made by me, Gage Lazo MD.
== END 2017-10-11 10:33 | disposition short-term general hospital (02) ==
LOC: UCEAST 08:42
DX: R10.11 Right upper quadrant pain (principal); Z32.02 Encounter for pregnancy test, result negative
CPT/HCPCS: 81003; 84702; 87651

== ENCOUNTER 2017-10-11 11:27 | Emergency (ER) | payer OTHER ==
[2017-10-11 12:41] LABS: ABS Basophils 0 10^3/ul (0-0.2); ABS Eosinophils 0.2 10^3/ul (0-0.6); ABS Lymphocytes 1.8 10^3/ul (1.0-4.8); ABS Monocytes 0.9 10^3/ul (0-0.8); ABS Neutrophils 5.6 10^3/ul (1.5-7.7); ABS Nucleated RBC 0 10^3/ul; Eosinophil % 2.7 % (0-6); Hematocrit 33 % (35-47); Hemoglobin 10.5 g/dl (12.0-16.0); Mean Corpuscular HGB Conc 32 g/dl (31-36); Mean Corpuscular Hemoglobin 23 pg (27-31); Mean Corpuscular Volume 71 fL (80-97); Mean Platelet Volume 8.1 um3 (7.4-10.4); Nucleated Red Blood Cells % 0; Platelet Count 319 10^3/ul (150-450); Red Blood Count 4.64 10^6/ul (4.0-5.4); Red Cell Distribution Width 17 % (10.5-15); White Blood Count 8.6 10^3/ul (3.5-10.8)
[2017-10-11 12:56] LABS: EGFR Non-African American 108.3 (>60)
[2017-10-11] MEDS ORDERED: NS 0.9% 1000 ML* 1,000 ML IV ONE (13:26)
[2017-10-11] MEDS ORDERED: Metoclopramide IV* 5 MG/ML 2 ML VIAL IV SLOW PU ONE (13:26)
[2017-10-11] MEDS ORDERED: Morphine INJ* 4 MG/ML 1 ML SYRINGE (NEW SYRINGE VERSION) IV ONE (13:26)
[2017-10-11 14:19] LABS: Urine Appearance Clear; Urine Blood Negative (Negative); Urine Color Yellow; Urine Ketones 1+ (Negative); Urine Protein Negative (Negative); Urine Specific Gravity 1.027 (1.010-1.030); Urine Urobilinogen Negative (Negative)
--- NOTE | 2017-10-11 14:21 | RAD ---
CLINICAL HISTORY: Right flank pain COMPARISON: March 17, 2016, February 06, 2012 TECHNIQUE: Multiple contiguous axial CT scans were obtained of the abdomen and pelvis, without intravenous contrast enhancement. Coronal and sagittal multiplanar reformations are submitted for review. Oral contrast was not administered. FINDINGS: The study is limited by the lack of intravenous contrast. This limits evaluation of the solid organs and vasculature. LUNG BASES: On axial image 4, there is a 0.4 cm nodule of the left lower lobe. This can be identified in retrospect on the 2000 examination. The stability is consistent with a benign nodule. The lung bases are otherwise clear. LIVER: The liver is normal in shape, size, contour, and attenuation. BILE DUCTS: There is no intrahepatic or extrahepatic biliary dilatation. GALLBLADDER: The gallbladder is normal, without pericholecystic inflammatory change. PANCREAS: The pancreas is normal, without mass or ductal dilatation. SPLEEN: Normal in size and appearance. UPPER GI TRACT: Evaluation of the gastrointestinal tract is limited by incomplete gastric distention. The upper GI tract is unremarkable. SMALL BOWEL AND MESENTERY: The small bowel is normal in contour, course, and caliber. There is no obstruction or dilatation. COLON: The colon is normal in contour, course, caliber. There is no pericolonic inflammatory change. There is a tubular, vermiform, hollow viscus that is blind ending, and originates from the cecum, consistent with a normal appendix. There is no periappendiceal inflammatory change. This is best seen on axial image 113 ADRENALS: Normal bilaterally. KIDNEYS: The kidneys are normal in shape, size, contour, and axis. There is no hydronephrosis or nephrolithiasis. BLADDER: The bladder is incompletely distended but is grossly normal. PELVIC ORGANS: The uterus and adnexa are grossly normal for technique. AORTA: The aorta is normal. IVC: Unremarkable LYMPH NODES: There is no lymphadenopathy by size criteria. ABDOMINAL WALL: There is no evidence for abdominal wall hernia. BONES AND SOFT TISSUES: Unremarkable OTHER: None IMPRESSION: NO HYDRONEPHROSIS OR NEPHROLITHIASIS
--- NOTE | 2017-10-11 16:26 | ED ---
Abdominal Pain/Female - HPI Summary HPI Summary: Rt side/flank pain this mornign at 2:00am Has had urinary frequency - no dysuria Leading up to this, ST, fatigue, DONIS LMP 2 weeks ago - denies vaginal d/c but does admit to dyspareunia, post coital bleeding since delivering baby 9 months ago - History of Current Complaint Chief Complaint: EDFlankPain Stated Complaint: FLANK PAIN-CC TRANSFER Time Seen by Provider: 10/11/17 12:21 Hx Last Menstrual Period: 09/12/17 Pain Intensity: 4 Allergies/Adverse Reactions: Allergies Allergy/AdvReac Type Severity Reaction Status Date / Time No Known Allergies Allergy Verified 10/11/17 12:11 PMH/Surg Hx/FS Hx/Imm Hx Endocrine/Hematology History: Denies: Hx Diabetes, Hx Thyroid Disease Cardiovascular History: Denies: Hx Congestive Heart Failure, Hx Deep Vein Thrombosis, Hx Hypertension , Hx Myocardial Infarction, Hx Pacemaker/ICD Respiratory History: Reports: Hx Asthma Denies: Hx Chronic Obstructive Pulmonary Disease (COPD), Hx Lung Cancer GI History: Reports: Hx Gastroesophageal Reflux Disease Denies: Hx Gall Bladder Disease, Hx Gastrointestinal Bleed, Hx Ulcer, Hx Urosepsis History: Denies: Hx Kidney Stones, Hx Renal Disease Neurological History: Denies: Hx Dementia, Hx Migraine, Hx Seizures, Hx Transient Ischemic Attacks (TIA) Psychiatric History: Denies: Hx Anxiety, Hx Depression, Hx Schizophrenia, Hx Bipolar Disorder - Surgical History Surgery Procedure, Year, and Place: Left foot surgery; - Immunization History Date of Tetanus Vaccine: unk Date of Influenza Vaccine: unk Infectious Disease History: No Infectious Disease History: Denies: Hx Clostridium Difficile, Hx Hepatitis, Hx Human Immunodeficiency Virus (HIV), Hx of Known/Suspected MRSA, Hx Shingles, Hx Tuberculosis, Hx Known/ Suspected VRE, Hx Known/Suspected VRSA, History Other Infectious Disease, Traveled Outside the [place] in Last 30 Days - Family History Known Family History: Positive: None, Diabetes, Respiratory Disease - Asthma, Seizure Disorder - Brother had seizure as a child--but none since. Negative: Hypertension, Blood Disorder - Social History Alcohol Use: None Hx Substance Use: No Substance Use Type: Reports: None Hx Tobacco Use: No Smoking Status (MU): Never Smoked Tobacco Physical Exam Vital Signs On Initial Exam: Initial Vitals Temp Pulse Resp BP Pulse Ox 97.7 F 88 17 121/75 98 10/11/17 12:08 10/11/17 12:08 10/11/17 12:08 10/11/17 12:08 10/11/17 12:08 Abdomen Description: Positive: Soft, CVA Tenderness (R), Other: - Rt side TTP - no rebounding Pelvic Exam: Positive: external exam normal, bimanual exam normal - pain is palpated superior to Rt adnexa, no cerv. motion tender, discharge - normal mucous d/c however pink tinged swab w/ mucous d/c collection as there are erythematous cells observed at opening of os and pt reports post coital bleeding - no bleeding observed today Musculoskeletal: Positive: Normal, Strength/ROM Intact Neurological: Positive: Normal, Sensory/Motor Intact, Alert, Oriented to Person Place, Time, CN Intact II-III Psychiatric: Positive: Normal Diagnostics - Vital Signs Vital Signs Temp Pulse Resp BP Pulse Ox 10/11/17 14:06 15 10/11/17 12:08 97.7 F 88 17 121/75 98 - Laboratory Lab Results: Lab Results 10/11/17 10/11/17 10/11/17 Range/Units 12:30 12:30 12:30 WBC 8.6 (3.5-10.8) 10^3/ul RBC 4.64 (4.0-5.4) 10^6/ul Hgb 10.5 L (12.0-16.0) g/dl Hct 33 L (35-47) % MCV 71 L (80-97) fL MCH 23 L (27-31) pg MCHC 32 (31-36) g/dl RDW 17 H (10.5-15) % Plt Count 319 (150-450) 10^3/ul MPV 8.1 (7.4-10.4) um3 Neut % (Auto) 65.5 (38-83) % Lymph % (Auto) 21.0 L (25-47) % Hendricks % (Auto) 10.3 H (0-7) % Eos % (Auto) 2.7 (0-6) % Baso % (Auto) 0.5 (0-2) % Absolute Neuts (auto) 5.6 (1.5-7.7) 10^3/ul Absolute Lymphs (auto) 1.8 (1.0-4.8) 10^3/ul Absolute Monos (auto) 0.9 H (0-0.8) 10^3/ul Absolute Eos (auto) 0.2 (0-0.6) 10^3/ul Absolute Basos (auto) 0 (0-0.2) 10^3/ul Absolute Nucleated RBC 0 10^3/ul Nucleated RBC % 0 Sodium 135 (133-145) mmol/L Potassium 3.7 (3.5-5.0) mmol/L Chloride 104 (101-111) mmol/L Carbon Dioxide 24 (22-32) mmol/L Anion Gap 7 (2-11) mmol/L BUN 13 (6-24) mg/dL Creatinine 0.62 (0.51-0.95) mg/dL Est GFR ( Amer) 139.3 (>60) Est GFR (Non-Af Amer) 108.3 (>60) BUN/Creatinine Ratio 21.0 H (8-20) Glucose 99 (70-100) mg/dL Lactic Acid 0.7 (0.5-2.0) mmol/L Calcium 9.1 (8.6-10.3) mg/dL Magnesium 1.9 (1.9-2.7) mg/dL Total Bilirubin 0.50 (0.2-1.0) mg/dL AST 17 (13-39) U/L ALT 12 (7-52) U/L Alkaline Phosphatase 83 (34-104) U/L C-Reactive Protein 3.94 (< 5.00) mg/L Total Protein 7.5 (6.4-8.9) g/dL Albumin 4.2 (3.2-5.2) g/dL Globulin 3.3 (2-4) g/dL Albumin/Globulin Ratio 1.3 (1-3) Lipase 25 (11.0-82.0) U/L Urine Color Urine Appearance Urine pH (5-9) Ur Specific [place] (1.010-1.030) Urine Protein (Negative) Urine Ketones (Negative) Urine Blood (Negative) Urine Nitrate (Negative) Urine Bilirubin (Negative) Urine Urobilinogen (Negative) Ur Leukocyte Esterase (Negative) Urine Glucose (Negative) Monoscreen Negative (Negative) 10/11/17 Range/Units 14:09 WBC (3.5-10.8) 10^3/ul RBC (4.0-5.4) 10^6/ul Hgb (12.0-16.0) g/dl Hct (35-47) % MCV (80-97) fL MCH (27-31) pg MCHC (31-36) g/dl RDW (10.5-15) % Plt Count (150-450) 10^3/ul MPV (7.4-10.4) um3 Neut % (Auto) (38-83) % Lymph % (Auto) (25-47) % Hendricks % (Auto) (0-7) % Eos % (Auto) (0-6) % Baso % (Auto) (0-2) % Absolute Neuts (auto) (1.5-7.7) 10^3/ul Absolute Lymphs (auto) (1.0-4.8) 10^3/ul Absolute Monos (auto) (0-0.8) 10^3/ul Absolute Eos (auto) (0-0.6) 10^3/ul Absolute Basos (auto) (0-0.2) 10^3/ul Absolute Nucleated RBC 10^3/ul Nucleated RBC % Sodium (133-145) mmol/L Potassium (3.5-5.0) mmol/L Chloride (101-111) mmol/L Carbon Dioxide (22-32) mmol/L Anion Gap (2-11) mmol/L BUN (6-24) mg/dL Creatinine (0.51-0.95) mg/dL Est GFR ( Amer) (>60) Est GFR (Non-Af Amer) (>60) BUN/Creatinine Ratio (8-20) Glucose (70-100) mg/dL Lactic Acid (0.5-2.0) mmol/L Calcium (8.6-10.3) mg/dL Magnesium (1.9-2.7) mg/dL Total Bilirubin (0.2-1.0) mg/dL AST (13-39) U/L ALT (7-52) U/L Alkaline Phosphatase (34-104) U/L C-Reactive Protein (< 5.00) mg/L Total Protein (6.4-8.9) g/dL Albumin (3.2-5.2) g/dL Globulin (2-4) g/dL Albumin/Globulin Ratio (1-3) Lipase (11.0-82.0) U/L Urine Color Yellow Urine Appearance Clear Urine pH 5.0 (5-9) Ur Specific [place] 1.027 (1.010-1.030) Urine Protein Negative (Negative) Urine Ketones 1+ A (Negative) Urine Blood Negative (Negative) Urine Nitrate Negative (Negative) Urine Bilirubin Negative (Negative) Urine Urobilinogen Negative (Negative) Ur Leukocyte Esterase Negative (Negative) Urine Glucose Negative (Negative) Monoscreen (Negative) Result Diagrams: 10/11/17 12:30 10/11/17 12:30 Lab Statement: Any lab studies that have been ordered have been reviewed, and results considered in the medical decision making process. Abdominal Pain Fem Course/Dx - Diagnoses Provider Diagnoses: Abdominal pain in female, Ovarian cyst, Dyspareunia, female, PCB (post coital bleeding) Discharge - Discharge Plan Condition: Stable Disposition: HOME Patient Education Materials: Acute Abdominal Pain (ED), Dyspareunia in Women ( DC), Ovarian Cyst (ED) Referrals: Carmel Diamond MD [Primary Care Provider] - Additional Instructions: The definitive cause of your abdominal pain was not identified today however emergent causes have been ruled out such as gallbladder attack, ovarian torsion , appendicitis, kidney stone, infection, ovarian cyst on the right side (you do have one on the Left), pancreatitis and mononucleosis. It is advised that you rest, stay hydrated and follow-up with your PCP in the next couple of days for further testing as needed. Call tomorrow to schedule follow-up appointment. It is important that you discuss your symptoms of painful intercourse and sometimes bleeding after intercourse with your primary care provider. Vaginal cultures were taken today to assess for infection. You will receive a call in the next 2 days if we find anything that needs to be treated. *If pain returns and/or you develop symptoms of fever, vomiting, vaginal bleeding, back pain, pain with urination or difficulty urinating or moving bowels, bloody stools, return to the emergency department - Billing Disposition and Condition Condition: STABLE Disposition: HOME
--- NOTE | 2017-10-11 17:31 | RAD ---
HISTORY: Right-sided pain COMPARISONS: CT dated October 11, 2017, ultrasound dated December 11, 2010 TECHNIQUE: Multiple transverse and longitudinal ultrasound images were obtained of the pelvis using grayscale, color Doppler, and spectral Doppler imaging using the endovaginal transducer. FINDINGS: UTERUS: The uterus measures 7.9 x 5.1 x 6.1 cm. The uterus is normal in shape, size, contour, and echotexture. ENDOMETRIUM: The endometrial stripe is smooth. The endometrium measures 2.5 cm in thickness. CUL-DE-SAC: There is no free fluid within the cul-de-sac. RIGHT OVARY: The right ovary measures 3.3 x 1.8 x 2.5 cm. Evaluation of the right ovary is limited by overlying bowel. Normal arterial and venous waveforms are identifiable within the ovary on spectral Doppler imaging. LEFT OVARY: The left ovary measures 3.1 x 2 x 2 cm. Normal arterial and venous waveforms are identifiable within the ovary on spectral Doppler imaging. There is a heterogeneously hyperechoic cystic lesion of the left ovary measuring 1.3 x 0.5 x 1.2 cm in size consistent of a hemorrhagic cyst. BLADDER: The bladder is not well visualized. OTHER: None IMPRESSION: 1. THICKENED ENDOMETRIUM MEASURING 2.5 CM. 2. PROBABLE HEMORRHAGIC CYST OF THE LEFT OVARY MEASURING 1.3 CM.. 3. NO SONOGRAPHIC FEATURES OF TORSION. PLEASE NOTE THAT PARTIAL OR INTERMITTENT TORSION MAY BE SONOGRAPHICALLY NORMAL.
[2017-10-11 19:01] VITALS: BP 127/84
== END 2017-10-11 19:00 | disposition home or self-care (01) ==
LOC: ED 11:27
DX: N83.209 Unspecified ovarian cyst, unspecified side (principal); N93.0 Postcoital and contact bleeding; R10.84 Generalized abdominal pain; N94.10 Unspecified dyspareunia
CPT/HCPCS: 36415; 74176; 76830; 80053; 81003; 83605; 83690; 83735; 85025; 86140; 86308; 87480; 87491; 87510; 87591; 87661; 99283; J2270; J2765

== ENCOUNTER 2018-11-07 10:07 | Emergency (ER) | payer BC, OTHER ==
[2018-11-07 10:16] VITALS: BP 116/70
--- NOTE | 2018-11-07 10:36 | UC ---
Throat Pain/Nasal Sen HPI - HPI Summary HPI Summary: 38-year-old female with history of asthma presents with onset of nasal congestion, runny nose, sinus pressure, bilateral ear congestion, sore throat, and occasional nonproductive cough. States she had an episode of shortness of breath and mild wheezing last night and had to use her albuterol inhaler. Denies fever, chills, dysphagia, chest pain, abdominal pain, nausea, vomiting, or diarrhea. - History of Current Complaint Chief Complaint: UCGeneralIllness Stated Complaint: SINUS ISSUE SORE THROAT COUGH Time Seen by Provider: 11/07/18 10:18 Hx Obtained From: Patient Hx Last Menstrual Period: 10/27/18 Pain Intensity: 0 - Allergies/Home Medications Allergies/Adverse Reactions: Allergies Allergy/AdvReac Type Severity Reaction Status Date / Time No Known Allergies Allergy Verified 03/07/18 14:26 PMH/Surg Hx/FS Hx/Imm Hx Respiratory History: Asthma GI/ History: Gastroesophageal Reflux Other History Of: Negative For: HIV, Hepatitis B, Hepatitis C - Surgical History Surgical History: Yes Surgery Procedure, Year, and Place: Left foot surgery; 2007. x2- 2016 , 2014 - Family History Known Family History: Positive: None, Diabetes, Respiratory Disease - Asthma, Seizure Disorder - Brother had seizure as a child--but none since. Negative: Hypertension, Blood Disorder - Social History Occupation: Employed Full-time Lives: With Family Alcohol Use: Rare Alcohol Amount: social Substance Use Type: None Smoking Status (MU): Never Smoked Tobacco - Immunization History Most Recent Influenza Vaccination: 2016 Most Recent Tetanus Shot: UTD Most Recent Pneumonia Vaccination: none Review of Systems All Other Systems Reviewed And Are Negative: Yes Constitutional: Positive: Fatigue. Negative: Fever, Chills Skin: Negative: Rash Eyes: Negative: Drainage, Eye Redness ENT: Positive: Sore Throat, Nasal Discharge, Sinus Congestion, Sinus Pain/ Tenderness. Negative: Ear Ache Respiratory: Positive: Cough. Negative: Shortness Of Breath Cardiovascular: Negative: Palpitations, Chest Pain Gastrointestinal: Negative: Abdominal Pain, Vomiting, Diarrhea, Nausea Genitourinary: Positive: Negative Musculoskeletal: Positive: Negative Neurological: Positive: Negative Is Patient Immunocompromised?: No Physical Exam - Summary Physical Exam Summary: GENERAL APPEARANCE: Well developed, well nourished, alert and cooperative, and appears to be in no acute distress. EYES: Conjunctiva clear. No drainage. EARS: External auditory canals and tympanic membranes clear, hearing grossly intact. NOSE: Mild-moderate nasal congestion. No nasal discharge. THROAT: Mild pharyngeal erythema. No tonsilar inflammation, swelling, exudate, or lesions. Uvula midline. Oral cavity normal. Teeth and gingiva in good general condition. NECK: Neck supple, non-tender without lymphadenopathy. CARDIAC: Normal S1 and S2. No S3, S4 or murmurs. Rhythm is regular. There is no peripheral edema, cyanosis or pallor. Extremities are warm and well perfused. Capillary refill is less than 2 seconds. Peripheral pulses intact. LUNGS: Clear to auscultation without rales, rhonchi, wheezing or diminished breath sounds. Dry, non-productive cough. ABDOMEN: Positive bowel sounds. Soft, nondistended, nontender. No guarding or rebound. No masses or hepatosplenomegally. MUSKULOSKELETAL: ROM intact to all extremities. No joint erythema or tenderness. Normal muscular development. Normal gait. SKIN: Skin normal color, texture and turgor with no lesions or eruptions. Triage Information Reviewed: Yes Vital Signs: Initial Vital Signs Temp 98.4 F 11/07/18 10:13 Pulse 78 11/07/18 10:13 Resp 17 11/07/18 10:13 BP 116/70 11/07/18 10:13 Pulse Ox 100 11/07/18 10:13 Vital Signs Reviewed: Yes Throat Pain/Nasal Course/Dx - Course Course Of Treatment: 38-year-old female with history of asthma presents with onset of nasal congestion, runny nose, sinus pressure, bilateral ear congestion, sore throat, and occasional nonproductive cough. States she had an episode of shortness of breath and mild wheezing last night and had to use her albuterol inhaler. Denies fever, chills, dysphagia, chest pain, abdominal pain, nausea, vomiting, or diarrhea. Afebrile. Vital signs stable. Exam remarkable for some mild to moderate nasal congestion, mild pharyngeal erythema without tonsillar swelling or exudate, no cervical lymphadenopathy, clear bilateral breath sounds, and a dry nonproductive cough. 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 Recommending symptomatic treatment for a viral upper respiratory infection including fluticasone nasal spray and Tessalon Perles every 8 hours as needed for cough. She should continue to use her albuterol inhaler as needed. She is to follow-up with her primary care provider in 5-7 days of symptoms do not improve. Anticipatory guidance and warning symptoms are reviewed with the patient. Verbalizes understanding and agrees with plan of care. - Differential Dx/Diagnosis Differential Diagnosis/HQI/PQRI: Influenza, Pharyngitis, Sinusitis, URI Provider Diagnosis: Viral URI with cough Discharge - Sign-Out/Discharge Documenting (check all that apply): Patient Departure All imaging exams completed and their final reports reviewed: No Studies - Discharge Plan Condition: Stable Disposition: HOME Prescriptions: Benzonatate CAP* [Tessalon 100 MG CAP*] 100 mg PO TID PRN #30 cap PRN Reason: Cough Fluticasone NASAL SPRAY 50MCG* [Flonase NASAL SPRAY 50MCG*] 2 spray BOTH NARES DAILY #1 btl Patient Education Materials: Upper Respiratory Infection (ED) Referrals: Carmel Diamond MD [Primary Care Provider] - 5 Days Additional Instructions: The rapid strep test performed in the clinic today was negative. Your history and exam are consistent with a viral upper respiratory infection. Viral infections do not respond to antibiotics and are limited to the treatment of symptoms. Viral infections typically run their course in 7-10 days. Drink plenty of fluids to avoid dehydration especially if you are running any fever. Use a saline rinse kit such as Neti Pot or NeilMed at least twice a day to help thin secretions and promote drainage of the sinuses. Use fluticasone (Flonase) nasal spray 2 sprays each nostril once daily. Try an over the counter decongestant such as Sudafed for the congestion. Continue to use your albuterol inhaler as directed for any shortness of breath or wheezing. Use Tessalon Perles 1 cap every 8 hours as needed for cough. Take over the counter acetaminophen (Tylenol) according to directions as needed for pain or fever. Use salt water gargles several times a day if you have a sore throat. You may also use Chloraseptic spray or Cepacol lonzenges according to directions which contain a numbing medication and can provide some temporary relief from your sore throat. Follow up with your primary care provider in 5-7 days if symptoms persist. Seek immediate medical attention in the emergency room if you have fever greater than 100.5 F despite taking acetaminophen or ibuprofen, have chest pain , difficulty breathing, are unable to swallow, or have any worsening of symptoms. - Billing Disposition and Condition Condition: STABLE Disposition: Home
== END 2018-11-07 11:07 | disposition home or self-care (01) ==
LOC: UCEAST 10:07
DX: J06.9 Acute upper respiratory infection, unspecified (principal); R05 Cough; J45.909 Unspecified asthma, uncomplicated; K21.9 Gastro-esophageal reflux disease without esophagitis
CPT/HCPCS: 87651; 99212; G0463

== ENCOUNTER 2019-08-25 10:04 | Emergency (ER) | payer BC, OTHER ==
[2019-08-25 10:12] VITALS: BP 125/79
--- NOTE | 2019-08-25 10:16 | UC ---
Respiratory Complaint HPI - HPI Summary HPI Summary: 39 y/o female presents to the urgent care c/o nasal congestion, clear nasals discharge, body aches low grade fever, dry cough and mild wheezing for the past 3 days. Pt w/ PMHX of Asthma and started to use her inhaler last night. Her kids were Dx w/ Influenza last week. She has has low grade fever for the past 2 days associated w/ clear PND which has triggered mild wheezing. She has taken OTC medications to alleviates w/o any improvement. Pt denies SOB, chest pain, dizziness, abdominal pain, N/V/D. - History of Current Complaint Chief Complaint: UCGeneralIllness Stated Complaint: COUGH, CHEST CONGESTION Time Seen by Provider: 08/25/19 10:14 Hx Obtained From: Patient Hx Last Menstrual Period: 07/24/2019 ?: No Onset/Duration: Gradual Onset, Lasting Days - 3 days, Still Present, Worse Since - yesterday w/ mild wheeaing Timing: Intermittent Episodes Severity Initially: Mild Severity Currently: Moderate Pain Intensity: 6 - body aches, sore throat Pain Scale Used: 0-10 Numeric Character: Cough: Nonproductive Alleviating Factors: Bronchodilator, OTC Meds Associated Signs And Symptoms: Positive: Fever, Chills, Wheezing, URI, Nasal Congestion - clear. Negative: Pleuritic Chest Pain, Hemoptysis, Dizziness - Risk Factors Pulmonary Embolism Risk Factors: Negative Cardiac Risk Factors: Negative Pseudomonas Risk Factors: Negative Tuberculosis Risk Factors: Negative - Allergies/Home Medications Allergies/Adverse Reactions: Allergies Allergy/AdvReac Type Severity Reaction Status Date / Time No Known Allergies Allergy Verified 08/25/19 10:12 Home Medications: Home Medications Esomeprazole Magnesium [Nexium 24Hr] 1 tab PO DAILY 08/25/19 [History Confirmed 08/25/19] PMH/Surg Hx/FS Hx/Imm Hx Previously Healthy: Yes Respiratory History: Asthma Other History Of: Negative For: HIV, Hepatitis B, Hepatitis C - Surgical History Surgical History: Yes Surgery Procedure, Year, and Place: Left foot surgery; 2008. x2- 2016 , 2014 - Family History Known Family History: Positive: Diabetes, Respiratory Disease - Asthma, Seizure Disorder - Brother had seizure as a child--but none since. Negative: Hypertension, Blood Disorder - Social History Occupation: Employed Full-time Lives: With Family Alcohol Use: Rare Alcohol Amount: social Substance Use Type: None Smoking Status (MU): Never Smoked Tobacco - Immunization History Most Recent Influenza Vaccination: 2016 Most Recent Tetanus Shot: UTD Most Recent Pneumonia Vaccination: none Review of Systems All Other Systems Reviewed And Are Negative: Yes Constitutional: Positive: Fever, Chills, Fatigue, Other - body aches Skin: Positive: Negative Eyes: Positive: Negative ENT: Positive: Sore Throat, Nasal Discharge - clear, Sinus Congestion, Sinus Pain/Tenderness, Other - moderate PND Respiratory: Positive: Cough - dry, Other - wheezing Cardiovascular: Positive: Negative Gastrointestinal: Positive: Negative Genitourinary: Positive: Negative Motor: Positive: Negative Neurovascular: Positive: Negative Musculoskeletal: Positive: Myalgia Neurological: Positive: Headache Psychological: Positive: Negative Is Patient Immunocompromised?: No Physical Exam - Summary Physical Exam Summary: Vital Signs Reviewed: Yes General: well developed, well nourished female sitting in the examining table w/ o any apparent distress Eyes: Positive: Conjunctiva Clear - PERRLA, EOMI, fundi grossly normal ENT: Positive: Normal ENT inspection, Hearing grossly normal, Pharynx normal, Nasal congestion - edematous and erythematous nasal mucosa, Nasal drainage - yellowish drainage, TMs normal. Negative: Tonsillar swelling, Tonsillar exudate Neck: Positive: Supple, Nontender, No Lymphadenopathy Respiratory: no orthopnea or dyspnea. Able to speak in full sentences, no retractions or accessory muscle use, no tripod position, stridor, or head bobbing. Positive breath sounds bilaterally. diffuse scattered mild wheezing on b/L lungs, no rhonchi no crackles or rales. Cardiovascular: Positive: RRR, No Murmur, Pulses Normal, Brisk Capillary Refill Abdomen Description: Positive: Nontender, No Organomegaly, Soft. Negative: CVA Tenderness (R), CVA Tenderness (L) Bowel Sounds: Positive: Present Musculoskeletal Exam: Normal Musculoskeletal: Positive: Strength Intact, ROM Intact, No Edema Neurological Exam: Normal Psychological Exam: Normal Skin Exam: Normal Triage Information Reviewed: Yes Vital Signs: Initial Vital Signs Temp 98.8 F 08/25/19 10:08 Pulse 96 08/25/19 10:08 Resp 16 08/25/19 10:08 BP 125/79 08/25/19 10:08 Pulse Ox 100 02/02/20 10:08 Respiratory Course/Dx - Course Course Of Treatment: 39 y/o female presents to the urgent care c/o nasal congestion, clear nasals discharge, body aches low grade fever, dry cough and mild wheezing for the past 3 days. Pt w/ PMHX of Asthma and started to use her inhaler last night. Her kids were Dx w/ Influenza last week. She has has low grade fever for the past 2 days associated w/ clear PND which has triggered mild wheezing. She has taken OTC medications to alleviates w/o any improvement. Pt denies SOB, chest pain, dizziness, abdominal pain, N/V/D. Hx obtained PT w/ Positive breath sounds bilaterally. diffuse scattered mild wheezing on b/L lungs, no rhonchi no crackles or rales. O2Sat:100%. Rapid influenza A&B ordered: positive influenza B. chest X-ray ordered: no acute cardiopulmonary disease observed as per radiologist. Pt Duoneb Treatment to alleviate symptoms. Pt tolerated well treatment and lungs improved,and wheezing resolved. Patient prescribed Tamiflu PO and Albuterol neb to alleviate symptoms as directed below. The patient was recommended to increase fluid intake. Take medications as recommended. Pt advised to return to the clinic or f/u w/ her PCP if symptoms do not improve. All D/C instructions explained. Patient understood and agree w/ plan of care. Pt left clinic hemodynamically stable , A&OX3 - Differential Dx/Diagnosis Differential Diagnosis/HQI/PQRI: Asthma, Bronchitis, Influenza, Laryngitis, Lower Resp Infection, Sinusitis Provider Diagnosis: Influenza B, Wheezing Discharge ED - Sign-Out/Discharge Documenting (check all that apply): Patient Departure - D/C home All imaging exams completed and their final reports reviewed: No Studies - Discharge Plan Condition: Stable Disposition: HOME Prescriptions: Albuterol 2.5MG/3ML (0.083%)* [Ventolin 2.5 MG/3 ML NEB.GEORGE*] 2.5 mg INH Q6H PRN #1 [email or web address] PRN Reason: Wheezing Oseltamivir CAP* [Tamiflu CAP*] 75 mg PO BID #10 cap Patient Education Materials: Influenza (ED), Wheezing (ED) Forms: *Work Release Referrals: Carmel Diamond MD [Primary Care Provider] - 2 Days () Additional Instructions: 1- Please take the full course of the antiviral to avoid resistance. Encourage hand washing and wear a mask to avoid spreading. 2-Please continue taking Tylenol PO q6-8hrs prn as instructed after meals to alleviate fever, and sore throat. Increase fluid intake, eat well, rest and avoid strenuous exercise 3-Use the Duoneb nebulizer treatment to alleviate SOB, and wheezing as directed . Increase fluid intake, rest and eat well. 4- If symptoms do not improve or worsen or your develop SOB with fever and severe wheezing please go immediately to the ER further evaluation and treatment. 5- F/u with your PCP in 2-3 days for further management on your Asthma - Billing Disposition and Condition Condition: STABLE Disposition: Home
[2019-08-25] MEDS ORDERED: Albuterol/Ipratropium NEB.SOL* Albuterol 2.5 MG/Ipratropium 0.5 MG 3 ML INH ONE (10:30)
[2019-08-25 10:43] LABS: Influenza B Molecular POSITIVE (Negative)
== END 2019-08-25 11:44 | disposition home or self-care (01) ==
LOC: UCEAST 10:04
DX: J10.1 Influenza due to other identified influenza virus with other respiratory manifestations (principal); R06.2 Wheezing; J45.909 Unspecified asthma, uncomplicated
CPT/HCPCS: 71046; 87651; 99212; A9270-GY; G0463

== ENCOUNTER 2019-08-28 09:29 | Emergency (ER) | payer OTHER ==
[2019-08-28 09:50] VITALS: BP 111/78
--- NOTE | 2019-08-28 11:37 | UC ---
General HPI - HPI Summary HPI Summary: States she symptoms started 6 days ago. She was seen here in urgent care on 08/25 - diagnosed with the flu and had a negative CXR. STarted on tamiflu. She has albuterol inhaler with spacer and nebulizer that she has been using every 4 hours even though it states every 6 hours. Her cough seems to have gotten worse. A lot of pleurtic pain. No documented fever. She is low on symbicort. Decrease PO due to coughing. WOrks in bank is having a hard time. Meds: Reviewed - History of Current Complaint Chief Complaint: UCGeneralIllness Stated Complaint: COUGH CONGESTION Time Seen by Provider: 08/28/19 11:23 Hx Last Menstrual Period: tubal Pain Intensity: 8 - Allergy/Home Medications Allergies/Adverse Reactions: Allergies Allergy/AdvReac Type Severity Reaction Status Date / Time No Known Allergies Allergy Verified 08/25/19 10:12 PMH/Surg Hx/FS Hx/Imm Hx Previously Healthy: Yes Respiratory History: Asthma Other History Of: Negative For: HIV, Hepatitis B, Hepatitis C - Surgical History Surgical History: Yes Surgery Procedure, Year, and Place: Left foot surgery; 2007. x2- 2016 , 2014 - Family History Known Family History: Positive: None, Diabetes, Respiratory Disease - Asthma, Seizure Disorder - Brother had seizure as a child--but none since. Negative: Hypertension, Blood Disorder - Social History Alcohol Use: Rare Alcohol Amount: social Substance Use Type: None Smoking Status (MU): Never Smoked Tobacco - Immunization History Most Recent Influenza Vaccination: 2016 Most Recent Tetanus Shot: UTD Most Recent Pneumonia Vaccination: none Review of Systems All Other Systems Reviewed And Are Negative: Yes Respiratory: Positive: Shortness Of Breath, Cough Physical Exam Triage Information Reviewed: Yes Appearance: Other: - mildly ill appearing Vital Signs: Initial Vital Signs Temp 99.9 F 08/28/19 09:45 Pulse 108 08/28/19 09:45 Resp 20 08/28/19 09:45 BP 111/78 08/28/19 09:45 Pulse Ox 100 08/28/19 09:45 Eyes: Positive: Conjunctiva Clear ENT: Positive: Pharyngeal erythema, Nasal congestion, TMs normal, Tonsillar swelling Neck: Positive: Supple, Nontender Respiratory: Positive: No accessory muscle use, Decreased breath sounds, Other: - b/l expiratory wheezing, faint with occasional rhonchi on right Cardiovascular: Positive: No Murmur, Tachycardia Diagnostics - Radiology CXR Radiology Interpretation Completed By: Radiologist Summary of Radiographic Findings: No acute cardiopulmonary process Course/Dx - Course Course Of Treatment: This is a 39 yr old with PMHx of Asthma and recent flu diagnosis with persistent SOB CXR: Negative Asthma Exacerbation No respiratory distress Plan Continue Albuterol inhaler or nebulizer every 4 hours while sick then change to as needed Start Prednisone as prescribed - take with food Continue rest, fluids and cough suppressant OTC Continue tamiflu as prescribed If symptoms worsen or persist despite above management, recommend follow up with PCP or return to Urgent Care - Diagnoses Provider Diagnosis: Asthma exacerbation Discharge ED - Sign-Out/Discharge Documenting (check all that apply): Patient Departure All imaging exams completed and their final reports reviewed: Yes - Discharge Plan Condition: Fair Disposition: HOME Prescriptions: Budesonide/Formote 160/4.5(NF) [Symbicort 160/4.5 (NF)] 1 puff INH BID #1 mdi predniSONE 20 mg TAB [Deltasone 20 MG TAB*] 20 mg PO DAILY #11 tab Patient Education Materials: Asthma (ED) Forms: *Work Release Referrals: Carmel Diamond MD [Primary Care Provider] - Additional Instructions: Continue Albuterol inhaler or nebulizer every 4 hours while sick then change to as needed Start Prednisone as prescribed - take with food Continue rest, fluids and cough suppressant OTC Continue tamiflu as prescribed If symptoms worsen or persist despite above management, recommend follow up with PCP or return to Urgent Care - Billing Disposition and Condition Condition: FAIR Disposition: Home
== END 2019-08-28 12:43 | disposition home or self-care (01) ==
LOC: UCEAST 09:29
DX: J44.1 Chronic obstructive pulmonary disease with (acute) exacerbation (principal)
CPT/HCPCS: 71046; 99212; G0463